=== PATIENT | male | born 1965 | race Caucasian/White ===

== ENCOUNTER 2016-04-10 08:04 | Emergency (ER) | payer OTHER ==
[2016-04-10] MEDS ORDERED: NS 1,000 ML IV ONE (08:20)
[2016-04-10 08:23] VITALS: BP 166/108; PULSE 75; RESP 18; TEMP 98; O2SAT 96
[2016-04-10] MEDS ORDERED: IOPAMIDOL (ISOVUE-370) 150 ML BTL IV ONE (08:26)
--- NOTE | 2016-04-10 08:28 | UCPHY ---
H & P Patient Type: New Time Seen by Provider: 04/10/16 08:12 HPI/ROS: CHIEF COMPLAINT: Swelling HISTORY OF PRESENT ILLNESS: The patient is a 51-year-old man who comes to the Urgent Care complaining of swelling underneath the left aspect of his maxilla. He 1st noticed it last night before going to bed and woke up this morning with significant swelling. He has been battling illness over the last week and was diagnosed with bronchitis 3 days ago and started on amoxicillin. He also was exposed to his son who was diagnosed with influenza. He has not had a fever or shortness of breath. He has not had any difficulty swallowing. He has not had any chest pain. No headache. No sore throat. REVIEW OF SYSTEMS: Constitutional: denies: chills, fever, recent illness, recent injury EENTM: see diagram Respiratory: denies: cough, shortness of breath Cardiac: denies: chest pain, irregular heart rate, lightheadedness, palpitations Gastrointestinal/Abdominal: denies: abdominal pain, diarrhea, nausea, vomiting, blood streaked stools Genitourinary: denies: dysuria, frequency, hematuria, pain Musculoskeletal: denies: joint pain, muscle pain Skin: denies: lesions, rash, jaundice, bruising Neurological: denies: headache, numbness, paresthesia, tingling, dizziness, weakness Hematologic/Lymphatic: denies: blood clots, easy bleeding, easy bruising Immunologic/allergic: denies: HIV/AIDS, transplant EXAM: GENERAL: Well-appearing, well-nourished and in no acute distress. HEAD: Atraumatic, normocephalic. EYES: Pupils equal round and reactive to light, extraocular movements intact, sclera anicteric, conjunctiva are normal. ENT: TMs normal, nares patent, oropharynx clear without exudates. No dental pain with Percussion. Moist mucous membranes. NECK: Moderate swelling below left mandible. Near angle of mandible. Firm, mildly tender, not erythematous. No intraoral swelling. LUNGS: Breath sounds clear to auscultation bilaterally and equal. No wheezes rales or rhonchi. HEART: Regular rate and rhythm without murmurs, rubs or gallops. ABDOMEN: Soft, nontender, normoactive bowel sounds. No guarding, no rebound. No masses appreciated. BACK: No CVA tenderness, no spinal tenderness, step-offs or deformities EXTREMITIES: Normal range of motion, no pitting or edema. No clubbing or cyanosis. NEUROLOGICAL: Cranial nerves II through XII grossly intact. Normal speech, normal gait. 5/5 strength, normal movement in all extremities, normal sensation PSYCH: Normal mood, normal affect. SKIN: Warm, dry, normal turgor, no visible rashes or lesions. Source: Patient Exam Limitations: No limitations - Medical/Surgical History Hx Asthma: No Hx Chronic Respiratory Disease: No Hx Diabetes: No Hx Cardiac Disease: No Hx Renal Disease: No Hx Cirrhosis: No Hx Alcoholism: No Hx HIV/AIDS: No Hx Splenectomy or Spleen Trauma: No Other PMH: Sinus surgery related to polyps - Family History Significant Family History: No pertinent family hx - Social History Smoking Status: Never smoked Alcohol Use: Sober Drug Use: None Constitutional: Initial Vital Signs Temperature (C) 36.6 C 04/10/16 08:20 Heart Rate 75 04/10/16 08:20 Respiratory Rate 18 04/10/16 08:20 Blood Pressure 166/108 H 04/10/16 08:20 O2 Sat (%) 96 04/10/16 08:20 O2 Delivery Mode Room Air Allergies/Adverse Reactions: No Known Allergies Allergy (Verified 07/02/14 10:50) Home Medications: Medication Instructions Recorded Amoxicillin 04/10/16 Medical Decision Making ED Course/Re-evaluation: Discussed the options for workup. Doubt that this is an abscess. I suspect that this is lymphadenopathy versus salivary gland stone. The onset is too abrupt for a tumor. I discussed these options with the patient offered a CT scan for evaluation. 1st he agreed to proceed with this plan but then he later refused and decided to come back in the next 24 for 48 hours if his symptoms worsen. I will give him follow up with ENT. Differential Diagnosis: Partial list of the Differential diagnosis considered include but were not limited to; salivary gland stone, lymphadenopathy, abscess and although unlikely based on the history and physical exam, I also considered Marcelino's angina, tumor, hemorrhage. I discussed these differential diagnoses and the plan with the patient as well as the usual and expected course. The patient understands that the diagnosis is provisional and that in medicine we are not always correct and that further workup is often warranted. Usual and customary warnings were given. All of the patient's questions were answered. The patient was instructed to return to the emergency department should the symptoms at all worsen or return, otherwise to followup with the physician as we discussed. - Data Points Laboratory Results: 04/10/16 04/10/16 04/10/16 Unknown 08:45 08:45 Influenza Typ A,B (DFA) NEGATIVE FOR FLU (NEGATIVE) Group A Strep Screen NEGATIVE (NEGATIVE) Group A Strep DNA Pending Medications Given: Discontinued Medications Sodium Chloride (Ns) 1,000 mls @ 0 mls/hr IV ONCE ONE PRN Reason: Wide Open Stop: 04/10/16 08:21 Last Admin: 04/10/16 08:56 Dose: Not Given Departure - Departure Disposition: Home, Routine, Self-Care Clinical Impression: Lymphadenopathy of head and neck Condition: Fair Instructions: Lymphadenopathy (ED) Referrals: LITTLE,UNKNOWN [Other] - As per Instructions Kike Beard MD [Medical Doctor] - As per Instructions - PQRS PQRS Measurement: 134: Depression screening and followup, PRIME MD-PHQ2 (12 years and older) Over the last 2 weeks, how often have you been bothered by any of the following problems? 1. Feeling down, depressed, or hopeless? 2. Little interest or pleasure in doing things? Patient answered no to both 1 and 2 130: Documentation of medications. Reviewed all patient medications, doses, route and frequency. 226: Do you smoke? No. 47: 65 and older: Advanced care planning. Patient designates surrogate decision maker as spouse . Patient has advanced directive. 51: 18 years old and older with diagnosis of COPD, spirometry performance. Spirometry not performed; equipment not available. 52: 18 years old and older with COPD and symptoms of COPD or FEV1<60% predicted prescribed a B Agonist. Not applicable
== END 2016-04-10 09:48 | disposition home or self-care (01) ==
LOC: CED 08:04
DX: R59.0 Localized enlarged lymph nodes (principal)
CPT/HCPCS: 87400-PO; 87880-PO; 99204-PO; G0463-PO; Q9967

== ENCOUNTER 2016-04-18 19:28 | Emergency (ER) | payer OTHER ==
[2016-04-18 19:49] VITALS: BP 157/95; PULSE 81; RESP 16; TEMP 98.1; O2SAT 93
--- NOTE | 2016-04-18 20:41 | UCPHY ---
H & P Time Seen by Provider: 04/18/16 20:30 Patient Type: Established HPI/ROS: This patient returns for recheck 80s after being seen here diagnosed with cervical lymphadenopathy associated with viral illness. Patient had the impression that he was diagnosed with mumps and he explains that he developed a mild headache associated with his URI symptoms consisting of nasal congestion frontal location 2/10 similar to previous headaches over the past few days. Today increased to 4/10 and he looked on web MD under mom's and found the sometimes it is associated with meningitis. He talked to his nurse practitioner sister in [place] who advised him to come in for further evaluation. ROS: No recent fevers or chills. No other constitutional symptoms. HEENT: He reports mild ongoing nasal congestion but no sinus pain or pressure. He currently has no sore throat. No ear pain. No other HEENT complaints including no significant sinus pressure. This frontal headache feels similar to prior headaches. A described as achy in nature. No throbbing component. Neuro: No confusion. No focal numbness tingling weakness. No visual changes. Pulmonary: No cough. Cardiovascular: No lightheadedness 10 point ROS is otherwise negative. Past Medical/Surgical History: Recent bronchitis treated with Amoxil and an inhaler with improvement. Social History: His son was diagnosed with influenza last week. Smoking Status: Never smoked Physical Exam: Physical Exam Vital signs are normal. General: No acute distress HEENT: Nose: Clear discharge bilaterally. No sinus tenderness to percussion. Ears: External canals and tympanic membranes are clear with no erythema or abnormal findings bilaterally. Oropharynx: No erythema or exudates. No dysphonia. No drooling or stridor. Neck: Supple with no meningismus. Kernig's and Brudzinski's tests are negative. Eyes: Pupils equal and react to light. Extraocular motions are intact. Lungs: Clear to auscultation bilaterally with no rales, rhonchi or wheeze. No respiratory distress. Cardiac: Regular rate and rhythm with no murmur gallop or rub Skin: No rash or pallor. Neuro: Alert with no focal deficits noted. Initial differential diagnosis: URI, tension headache versus mild sinus headache. Constitutional: Initial Vital Signs Temperature (C) 36.7 C 04/18/16 19:42 Heart Rate 81 04/18/16 19:42 Respiratory Rate 16 04/18/16 19:42 Blood Pressure 157/95 H 04/18/16 19:42 O2 Sat (%) 93 04/18/16 19:42 O2 Delivery Mode Room Air Allergies/Adverse Reactions: No Known Allergies Allergy (Verified 07/02/14 10:50) Home Medications: Medication Instructions Recorded Amoxicillin 04/10/16 MDM/Departure - [facility] ED Course/Re-evaluation: This patient appears entirely clinically well with normal vital signs exception of mild hypertension. No meningismus. No concerning findings. I do not find any compelling clinical evidence to suggest CARD GRADER infection that would warrant further workup and I counseled patient regarding this. - Depart Disposition: Home, Routine, Self-Care Clinical Impression: Viral URI Headache Qualifiers: Headache type: unspecified Headache chronicity pattern: acute headache Intractability: not intractable Qualified Code(s): R51 - Headache Condition: Good Instructions: Upper Respiratory Infection (ED), Acute Headache (ED) Additional Instructions: Diagnosis: 1. Viral URI 2. Headache Fortunately, I appreciate no clinically concerning findings for meningitis tonight. Plan: Drink plenty fluids Ibuprofen-600 mg per 6 hours and Tylenol in addition as needed. Her symptoms should improve over the next few days. Return here or to the emergency department for any significant worsening despite treatment plan Referrals: MD ALISSON [Other] - As per Instructions - PQRS PQRS Measurement: NA
== END 2016-04-18 20:45 | disposition home or self-care (01) ==
LOC: CED 19:28
DX: J06.9 Acute upper respiratory infection, unspecified (principal); R51 Headache
CPT/HCPCS: 99213-PO; G0463-PO

== ENCOUNTER 2016-09-26 09:09 | Emergency (ER) | payer OTHER ==
--- NOTE | 2016-09-26 09:20 | EDPHY ---
H & P Time Seen by Provider: 09/26/16 09:19 HPI/ROS: Chief complaint. Puncture wound HPI. 51-year-old male presents emergency department with puncture wound to his left palm which occurred yesterday. The patient was in [place] helping his son move in to a college dorm room. He was using a drill to assemble some dormitory furniture. The drill bit went through the would and into his left palm. The patient is right handed. Initially there was no bleeding for about 2 hours and then subsequently it bled quite briskly from the puncture wound. He has slight tingling to fingers 3 and 4 of the left hand but good motion. He does not have a sense of retained foreign body. He is current on his tetanus shot. ROS Constitutional. no fever/chills, no weakness Eyes. no problems with vision ENT. no sore throat, no nasal drainage Cardiovascular. no chest pain Respiratory. no shortness of breath, no cough Abdominal. no abdominal pain, no nausea/vomiting, no diarrhea . no problems urinating MS. no calf pain/swelling, no neck/back pain, no joint pain Skin. Left palm puncture wound Lymph. no swollen glands Neuro. no headache, no dizziness, no difficulty walking or with speech Past Medical/Surgical History: Hypertension Social History: , nonsmoker, no alcohol Smoking Status: Never smoked Physical Exam: General Appearance: Alert pleasant well-developed male mild distress vital signs stable Eyes: Pupils equal and round no pallor or injection. ENT, Mouth: Mucous membranes are moist. Respiratory: There are no retractions, lungs are clear to auscultation. Cardiovascular: Regular rate and rhythm. Gastrointestinal: Abdomen is soft and nontender, no masses, bowel sounds normal. Neurological: Awake and alert, sensory and motor exams grossly normal. Skin: Puncture wound mid palm left hand. No evidence for foreign body. No evidence for infection currently. It is not bleeding. Musculoskeletal: Neck is supple nontender. Extremities symmetrical, full range of motion. All fingers left hand have good range of motion. No obvious injury to the dorsum of the left hand Psychiatric: Patient is oriented X 3, there is no agitation. Constitutional: Initial Vital Signs Temperature (C) 36.5 C 09/26/16 09:22 Heart Rate 78 09/26/16 09:22 Respiratory Rate 16 09/26/16 09:22 Blood Pressure 154/110 H 09/26/16 09:22 O2 Sat (%) 95 09/26/16 09:22 O2 Delivery Mode Room Air Allergies/Adverse Reactions: No Known Allergies Allergy (Verified 09/26/16 09:20) Home Medications: Medication Instructions Recorded Cephalexin [Keflex (*)] 500 mg PO TID #12 cap 09/26/16 Lisinopril 09/26/16 Medical Decision Making - Diagnostics Imaging Results: Imaging Impressions Hand X-Ray 09/26/16 09:28 Impression: Negative. No fracture or foreign body. X-ray left hand reviewed by me and is negative for fracture foreign body Procedures: Wound cleaning to the hand ED Course/Re-evaluation: Wound is cleaned. Reinspection shows no evidence for foreign body. It is then dressed with antibiotic ointment and bandage Patient and I discussed imaging study results, treatment plan including higher risk of infection. We discussed criteria for return and importance of follow- up and further evaluation. He expresses understanding and agreement Differential Diagnosis: Puncture wound palm. I considered infection potential of wound, retained foreign body, bone fracture Departure - Departure Disposition: Home, Routine, Self-Care Clinical Impression: Puncture wound, hand Qualifiers: Encounter type: initial encounter Foreign body presence: without foreign body Laterality: left Qualified Code(s): S61.432A - Puncture wound without foreign body of left hand, initial encounter Condition: Good Instructions: Puncture Wound (ED) Additional Instructions: Cephalexin 3 times daily next 4 days. For the next 2-3 days apply antibiotic ointment and Band-Aid. You may shower and wash your hand. Return for signs of infection. Referrals: Toy Alberto MD [Primary Care Provider] - As per Instructions Prescriptions: Cephalexin [Keflex (*)] 500 mg PO TID #12 cap
[2016-09-26 09:25] VITALS: BP 154/110; PULSE 78; RESP 16; TEMP 97.7; O2SAT 95
== END 2016-09-26 10:05 | disposition home or self-care (01) ==
LOC: CED 09:09
DX: S61.432A Puncture wound without foreign body of left hand, initial encounter (principal); I10 Essential (primary) hypertension; W31.1XXA Contact with metalworking machines, initial encounter
CPT/HCPCS: 73130-PO